=== PATIENT | male | born 1960 ===

== ENCOUNTER → 2023-11-08 | Outpatient (CLI) | payer BC ==
--- NOTE | 2023-11-26 08:56 | MR ---
Patient: Guerrero Meraz Ordering Physician: Unknown, Unknown ID: [id number] Phone, Pager: Phone: N /A Pager: N/A : 1960 Age/Gender: 63Y, M Primary Location: N/A Procedure: MR knee LT wo con Chema ross Date: 11/08/2023 10:42:28 AM Order #: N/[id number] EXAMINATION TYPE: MR knee LT wo con DATE OF EXAM: 11/08/2023 COMPARISON: NONE HISTORY: Left knee medial pain. Internal derangement. TECHNIQUE: Multiplanar, multisequence images of the knee is performed without IV contrast. FINDINGS: MEDIAL MENISCUS: Abnormal signal in the medial meniscus with vertical component in the body extending to inferior articular surface. More horizontal component of posterior horn is seen. LATERAL MENISCUS: Anterior and posterior horns are intact without tear. CRUCIATE LIGAMENTS: The anterior and posterior cruciate ligaments are intact and unremarkable. COLLATERAL LIGAMENTS: The medial collateral ligament shows thickening with partial tearing along the proximal attachment. Lateral collateral ligament complex is intact. EXTENSOR MECHANISM: Visualized quadriceps and patellar tendons are intact. EFFUSION: There is small to moderate size suprapatellar joint effusion. POPLITEAL CYST: No popliteal/gutierrez cyst. TRICOMPARTMENT SPACES: Mild/moderate tricompartment joint space loss and spurring. CARTILAGE: Tricompartment articular cartilage is preserved. BONE MARROW SIGNAL: No focal abnormal marrow signal is appreciated. OTHER: No additional significant abnormality is appreciated. IMPRESSION: 1. Full-thickness tear medial meniscus running from the central body into the posterior horn. 2. 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 3. Small to moderate-sized patellar joint effusion. 4. Suspect chronic injury to the medial collateral ligament.
== END | disposition home or self-care (01) ==
LOC: RADMRIMAIN 10:42
PROVIDERS: ATTEND Orthopaedic Surgery
DX: M17.12 Unilateral primary osteoarthritis, left knee (principal)